=== PATIENT | female | born 1950 | race Asian ===

== ENCOUNTER 2016-11-07 15:16 | Inpatient (IN) | payer SELFPAY ==
[~2016-11-07] VITALS: Ht 157.5 cm; Wt 72.1 kg
[2016-11-07] MEDS ORDERED: ASPIRIN 81 MG TABLET CHEW PO ONE (15:30)
[2016-11-07] MEDS ORDERED: ASPIRIN 81 MG TABLET CHEW ONE (15:55)
[2016-11-07] MEDS ORDERED: SODIUM CHLORIDE FLUSH 10ML SYR IVF ONE (16:00)
[2016-11-07 16:07] LABS: BLOOD UREA NITROGEN 13 mg/dL (7-18)
[2016-11-07] MEDS ORDERED: [UNRECOGNIZED DRUG - REMARK] PO (16:10)
[2016-11-07] MEDS ORDERED: ALPR0.254 PO (16:10)
[2016-11-07] MEDS ORDERED: PRED5TAB25 PO (16:10)
[2016-11-07 16:11] LABS: IS PT STATUS REG ER OR PRE ER? YES
[2016-11-07] MEDS ORDERED: TIOT18CA INH (16:23)
[2016-11-07] MEDS ORDERED: POLYETHYLENE GLYCOL 17 GM PACKET PO PRN (17:30)
[2016-11-07] MEDS ORDERED: GUAIFENESIN/DM 200-20MG, 10ML UDC PO PRN (17:30)
[2016-11-07] MEDS ORDERED: DOCUSATE 100 MG CAPSULE PO PRN (17:30)
[2016-11-07] MEDS ORDERED: ONDANSETRON 2MG/ML, 2ML IVPush PRN (17:30)
[2016-11-07] MEDS ORDERED: MORPHINE SULFATE 4 MG/ML, 1ML IVPush PRN (17:30)
[2016-11-07] MEDS ORDERED: HYDROcodone/APAP 5/325 TABLET PO PRN (17:30)
[2016-11-07] MEDS ORDERED: [UNRECOGNIZED DRUG - OTHER] PO PRN (17:30)
[2016-11-07] MEDS ORDERED: ACETAMINOPHEN 325 MG TABLET PO PRN (17:30)
[2016-11-07] MEDS ORDERED: ONDANSETRON 2MG/ML, 2ML ONE (18:45)
[2016-11-07] MEDS ORDERED: MORPHINE SULFATE 4 MG/ML, 1ML ONE (18:45)
[2016-11-07 20:01] VITALS: BP 128/77
[2016-11-07] MEDS: SODIUM CHLORIDE FLUSH 10ML SYR IVF SCH (21:00)
[2016-11-08 00:14] LABS: IS PT STATUS REG ER OR PRE ER? NO
[2016-11-08 01:39] VITALS: BP 117/70
[2016-11-08] MEDS ORDERED: PNEUMOCOCCAL 23 VACCINE IM-VACC ONE (06:00)
[2016-11-08 06:01] LABS: IS PT STATUS REG ER OR PRE ER? NO
[2016-11-08 07:05] VITALS: BP 115/67
[2016-11-08] MEDS: SODIUM CHLORIDE FLUSH 10ML SYR IVF SCH (07:30)
[2016-11-08] MEDS ORDERED: REGADENOSON 0.4 MG/5 ML SYRINGE ONE (08:35)
[2016-11-08] MEDS ORDERED: SENNA/DOCUSATE TABLET PO SCH (09:00)
[2016-11-08] MEDS ORDERED: IPRATROPIUM 0.5 MG/2.5 ML INHA NPPB SCH (09:00)
[2016-11-08] MEDS ORDERED: prednisOLONE 15 MG/5 ML ORAL SOLN PO SCH ×3 (09:00)
[2016-11-08 13:46] VITALS: BP 118/68
[2016-11-08] MEDS ORDERED: IBUP-1222 PO (16:44)
[2016-11-08] MEDS ORDERED: ATOR10TA PO (16:44)
== END 2016-11-08 17:40 | disposition home or self-care (01) | DRG 204 ==
LOC: ED 16:49 → SUATTDRO 17:06 → 5SO 19:53 → EDIP 19:53
PROVIDERS: ADMIT Family Medicine; ATTEND Family Medicine
DX: R07.81 Pleurodynia (principal); I10 Essential (primary) hypertension; E11.65 Type 2 diabetes mellitus with hyperglycemia; D72.829 Elevated white blood cell count, unspecified; E78.5 Hyperlipidemia, unspecified; Z79.899 Other long term (current) drug therapy
CPT/HCPCS: 36415; 71010; 78452; 80048; 80061; 82040; 84484; 85025; 85379; 90732; 93005; 93017; 96361; 96374; 96375; J2405; J2785; A9502; C9898; J7510

== ENCOUNTER 2016-11-12 20:50 | Emergency (ER) | payer SELFPAY ==
[~2016-11-12] VITALS: Ht 160 cm; Wt 74.2 kg
[~2016-11-12 20:50] MED LIST: ALPR0.254 PO; ATOR10TA PO; IBUP-1222 PO; PRED5TAB25 PO; TIOT18CA INH; [UNRECOGNIZED DRUG - REMARK] PO
[2016-11-12] MEDS ORDERED: SODIUM CHLORIDE 0.9% 1,000ML IVBOLUS ONE (21:30)
[2016-11-12 21:59] LABS: ASPARTATE AMINO TRANSFERASE 12 U/L (15-37); BLOOD UREA NITROGEN 12 mg/dL (7-18)
[2016-11-12 22:04] LABS: IS PT STATUS REG ER OR PRE ER? YES
[2016-11-12 22:07] LABS: PATH.CAST-FLAG NOT PRESENT; SPERM-FLAG NOT PRESENT; SRC-FLAG NOT PRESENT; XTAL-FLAG NOT PRESENT; YLC-FLAG NOT PRESENT
[2016-11-12] MEDS ORDERED: ONDANSETRON 2MG/ML, 2ML ONE (22:27)
[2016-11-12] MEDS ORDERED: MORPHINE SULFATE 4 MG/ML, 1ML ONE (22:27)
[2016-11-12] MEDS ORDERED: MORPHINE SULFATE 4 MG/ML, 1ML IVPush PRN (22:30)
[2016-11-12] MEDS ORDERED: ONDANSETRON 2MG/ML, 2ML IVPush ONE (22:30)
[2016-11-12] MEDS ORDERED: OMNIPAQUE 350 MG/ML, 100ML BOTTLE ONE (23:05)
[2016-11-12 23:56] VITALS: BP 135/68
== END 2016-11-12 23:58 | disposition home or self-care (01) ==
LOC: ED 23:32
DX: A09 Infectious gastroenteritis and colitis, unspecified (principal); I10 Essential (primary) hypertension; E11.9 Type 2 diabetes mellitus without complications
CPT/HCPCS: 36415; 74177; 80053; 81001; 83690; 84484; 85025; 87086; 96361; 96374; 96375; 99285; J2405; J7030; Q9967

== ENCOUNTER → 2016-11-20 | Outpatient (CLI) | payer SELFPAY | END | disposition home or self-care (01) | LOC: LAB 16:59 | PROVIDERS: ATTEND Family Medicine | DX: R19.7 Diarrhea, unspecified (principal) | CPT/HCPCS: 87046; 87324; 87328; 87329; 87899; 89055 ==

== ENCOUNTER 2019-04-08 11:13 | Emergency (ER) | payer SELFPAY ==
[~2019-04-08] VITALS: Ht 157.5 cm; Wt 78.0 kg
--- NOTE | 2019-04-08 11:57 | NUR ---
PT RESTING IN BED, FAMILY AT BEDSIDE. ATTACHED TO MONITORS. LABS DRAWN AND SENT, IV STARTED WITHOUT ISSUE. CALL LIGHT IN REACH. PT AND FAMILY DENY ANY FURTHER NEEDS OR CONCERNS AT THIS TIME.
[2019-04-08] MEDS ORDERED: SODIUM CHLORIDE FLUSH 10ML SYR IVF ONE (12:00)
--- NOTE | 2019-04-08 12:01 | NUR ---
PT TO XRAY
[2019-04-08 12:10] LABS: BASOPHILS # (AUTO) 0.04 x10^3/uL (0-0.1); BASOPHILS % (AUTO) 0 % (0-1); EOSINOPHILS # (AUTO) 0.13 x10^3/uL (0-0.4); EOSINOPHILS % (AUTO) 1 % (1-7); LYMPHOCYTES # (AUTO) 1.95 x10^3/uL (1-3.4); LYMPHOCYTES % (AUTO) 16 % (22-44); MD NO; MEAN CORPUSCULAR HEMOGLOBIN 25.3 pg (27.0-34.8); MEAN CORPUSCULAR HGB CONC 31.3 g/dL (32.4-35.8); MEAN CORPUSCULAR VOLUME 80.8 fL (80-100); MEAN PLATELET VOLUME 9.4 fL (7.4-10.4); MONOCYTES # (AUTO) 0.81 x10^3/uL (0.2-0.8); MONOCYTES % (AUTO) 7 % (2-9); NEUTROPHILS # (AUTO) 9.48 x10^3/uL (1.8-6.8); NEUTROPHILS % (AUTO) 76 % (42-75); PLATELET COUNT 254 x10^3/uL (130-400); RED BLOOD COUNT 4.98 x10^6/uL (3.82-5.3)
[2019-04-08 12:23] LABS: ALANINE AMINOTRANSFERASE 22 U/L (12-78); ALBUMIN 3.3 g/dL (3.4-5.0); ANION GAP 7 mmol/L (5-15); CALCIUM 8.9 mg/dL (8.5-10.1); CHLORIDE 107 mmol/L (98-107); CREATININE 0.92 mg/dL (0.55-1.02)
[2019-04-08 12:26] LABS: ALKALINE PHOSPHATASE 125 U/L (45-117); BILIRUBIN,TOTAL 0.4 mg/dL (0.2-1.0); TOTAL PROTEIN 8.1 g/dL (6.4-8.2)
--- NOTE | 2019-04-08 12:55 | NUR ---
URINE SAMPLE WALKED TO LAB
[2019-04-08 13:13] LABS: MICROSCOPIC NOT IND
[2019-04-08 13:14] LABS: CULTURE INDICATED? NO
[2019-04-08 13:59] VITALS: BP 105/52
--- NOTE | 2019-04-08 13:59 | NUR ---
PT RESTING IN GURNEY, AWAITING RECHECK. FAMILY AT BEDSIDE, NO NEEDS AT THIS TIME. CALL LIGHT WTIHIN REACH.
== END 2019-04-08 14:55 | disposition home or self-care (01) ==
LOC: ED 12:21
DX: J18.9 Pneumonia, unspecified organism (principal); I10 Essential (primary) hypertension; E11.65 Type 2 diabetes mellitus with hyperglycemia; J45.909 Unspecified asthma, uncomplicated
CPT/HCPCS: 36415; 71046; 80053; 81003; 83605; 84145; 85025; 87040; 99284

== ENCOUNTER → 2020-05-22 | Outpatient (CLI) | payer OTHER | END | disposition home or self-care (01) | LOC: CFH 09:09 | PROVIDERS: ATTEND Family Medicine | DX: Z12.31 Encounter for screening mammogram for malignant neoplasm of breast (principal) | CPT/HCPCS: 77063; 77067 ==